=== PATIENT | male | born 1975 | race Caucasian/White ===

== ENCOUNTER 2018-02-20 20:09 | Outpatient (REF) | payer BC, SELFPAY ==
[2018-02-20 20:47] LABS: INR 3.3 (1.0-3.5); Prothrombin Time 30.6 sec (9.3-10.8)
== END 2018-02-20 20:10 ==
LOC: NCHCN 20:09
PROVIDERS: PCP Nurse Practitioner Family; Visit Provider Registered Nurse
DX: I82.509 Chronic embolism and thrombosis of unspecified deep veins of unspecified lower extremity (principal); I87.2 Venous insufficiency (chronic) (peripheral)
CPT/HCPCS: 85610

== ENCOUNTER 2018-04-10 10:24 | Outpatient (REF) | payer BC, SELFPAY ==
[2018-04-10 21:03] LABS: HCT 46.2 % (40.0-50.0); HGB 15.6 g/dL (13.5-17.5); Mean Corp. HGB Concentration 33.8 g/dL (32.0-36.0); Mean Corpuscular Hemoglobin 30.6 pg (27.0-33.0); Mean Corpuscular Volume 90.6 fL (80-95); Mean Platelet Volume 10.4 fL (8.0-11.0); Platelet Count 297 x1000/uL (130-400); RBC Distribution Width 13.5 % (11.8-14.1); White Blood Cell Count 7.33 k/cumm (4.4-10.8)
[2018-04-10 21:14] LABS: INR 2.3 (1.0-3.5); Prothrombin Time 21.5 sec (9.3-10.8)
[2018-04-10 21:26] LABS: Anion Gap 9.6 mmol/L (3-11); BUN 18 mg/dL (7-18); CO2 27.4 mmol/L (21.0-32.0); CREATININE 1.18 mg/dL (0.70-1.30); Chloride 105 mmol/L (98-107); Cholesterol 157 mg/dL (50-200); Glucose 93 mg/dL (70-100); HDL Cholesterol 45 mg/dL (40-60); LDL CHOLESTEROL 105 mg/dL (<100); Potassium 4.2 mmol/L (3.5-5.1); Sodium 142 mmol/L (136-145); Triglyceride 73 mg/dL (30-150)
[2018-04-10 22:20] LABS: Calcium 8.7 mg/dL (8.5-10.1)
== END 2018-04-10 10:44 ==
LOC: NCHCN 10:24
PROVIDERS: PCP Nurse Practitioner Family; Visit Provider Nurse Practitioner Family
DX: R03.0 Elevated blood-pressure reading, without diagnosis of hypertension (principal); I82.509 Chronic embolism and thrombosis of unspecified deep veins of unspecified lower extremity; Z79.01 Long term (current) use of anticoagulants; Z13.220 Encounter for screening for lipoid disorders
CPT/HCPCS: 80048; 80061; 83721; 85027; 85610

== ENCOUNTER 2019-05-11 17:30 | Outpatient (REF) | payer BC, SELFPAY ==
[2019-05-11 21:57] LABS: Hemoglobin A1C 5.6 % (4.5-6.2)
[2019-05-11 22:04] LABS: ALT 47 U/L (16-63); AST 29 U/L (15-37); Albumin 4.1 g/dL (3.4-5.0); Alkaline Phosphatase 81 U/L (46-116); Anion Gap 8.2 mmol/L (3-11); BUN 28 mg/dL (7-18); Bilirubin, Total 0.5 mg/dL (0.2-1.0); CO2 29.8 mmol/L (21.0-32.0); CREATININE 1.13 mg/dL (0.70-1.30); Calcium 9.3 mg/dL (8.5-10.1); Chloride 105 mmol/L (98-107); Glucose 87 mg/dL (70-100); Sodium 143 mmol/L (136-145)
== END 2019-05-11 17:50 ==
LOC: NCHCN 17:30
PROVIDERS: PCP Nurse Practitioner Family; Visit Provider Nurse Practitioner Family
DX: I87.003 Postthrombotic syndrome without complications of bilateral lower extremity (principal); Z79.01 Long term (current) use of anticoagulants; J30.9 Allergic rhinitis, unspecified; Z13.1 Encounter for screening for diabetes mellitus
CPT/HCPCS: 80053; 83036

== ENCOUNTER 2021-07-19 07:48 | Outpatient (REF) | payer OTHER, SELFPAY ==
[2021-07-19 15:02] LABS: HCT 45.7 % (40.0-50.0); HGB 15.3 g/dL (13.5-17.5); MCH 30.3 pg (27.0-33.0); MCHC 33.5 % (32.0-36.0); MCV 90.5 fL (80-95); Platelet Count 290 10^3/uL (130-400); RBC 5.05 10^6/uL (4.36-5.78); RDW 12.5 % (11.8-14.1); RDW-SD 41.2 fL; WBC 5.63 10^3/uL (4.4-10.8)
[2021-07-19 15:32] LABS: Anion Gap 9.1 mmol/L (3-11); BUN 23 mg/dL (7-18); CO2 25.9 mmol/L (21.0-32.0); Calcium 9.3 mg/dL (8.5-10.1); Calculated LDL 87 mg/dL (<100); Chloride 104 mmol/L (98-107); Cholesterol 153 mg/dL (<200); Glucose 108 mg/dL (74-106); HDL Cholesterol 61 mg/dL (40-60); Potassium 4.2 mmol/L (3.5-5.1); Sodium 139 mmol/L (136-145); Triglyceride 29 mg/dL (<150)
[2021-07-19 15:48] LABS: Hemoglobin A1C 5.7 % (<5.7)
== END 2021-07-19 07:49 | disposition home or self-care (01) ==
LOC: NCHCN 07:48
PROVIDERS: PCP Nurse Practitioner Family; Visit Provider Nurse Practitioner Family
DX: E66.9 Obesity, unspecified (principal); I87.003 Postthrombotic syndrome without complications of bilateral lower extremity; Z13.1 Encounter for screening for diabetes mellitus; Z13.220 Encounter for screening for lipoid disorders; Z79.01 Long term (current) use of anticoagulants
CPT/HCPCS: 80048; 80061; 85027; 83036

== ENCOUNTER 2023-08-04 14:31 | Outpatient (REF) | payer OTHER, SELFPAY ==
[2023-08-04 15:49] LABS: HCT 44.2 % (40.0-50.0); HGB 14.9 g/dL (13.5-17.5); MCH 30.1 pg (27.0-33.0); MCHC 33.7 % (32.0-36.0); MCV 89 fL (80-95); MPV 10.2 fL (8.0-11.0); Platelet Count 309 10^3/uL (130-400); RBC 4.95 10^6/uL (4.36-5.78); RDW 12.7 % (11.8-14.1); RDW-SD 41.5 fL
[2023-08-04 16:19] LABS: ALT 137 U/L (16-63); AST 57 U/L (15-37); Alkaline Phosphatase 63 U/L (46-116); Anion Gap 11.7 mmol/L (3-11); BUN 22 mg/dL (7-18); Bilirubin, Total 0.4 mg/dL (0.2-1.0); CO2 22.3 mmol/L (21.0-32.0); Calcium 9.2 mg/dL (8.5-10.1); Calculated LDL 116 mg/dL (<100); Chloride 107 mmol/L (98-107); Cholesterol 175 mg/dL (<200); Estimated GFR 92.84 (mL/min/1.73m2); Glucose 122 mg/dL (74-106); HDL Cholesterol 53 mg/dL (40-60); Sodium 141 mmol/L (136-145); Total Protein 7.2 g/dL (6.4-8.2); Triglyceride 32 mg/dL (<150)
[2023-08-04 16:43] LABS: Hemoglobin A1C 5.8 % (<5.7)
== END 2023-08-04 14:32 | disposition home or self-care (01) ==
LOC: NCHCN 14:31
PROVIDERS: PCP Nurse Practitioner Family; Visit Provider Nurse Practitioner Family
DX: R73.03 Prediabetes (principal); I87.003 Postthrombotic syndrome without complications of bilateral lower extremity; R79.89 Other specified abnormal findings of blood chemistry; Z79.01 Long term (current) use of anticoagulants
CPT/HCPCS: 80053; 80061; 85027; 83036

== ENCOUNTER 2024-02-10 14:36 | Outpatient (REF) | payer OTHER, SELFPAY ==
[2024-02-10 15:39] LABS: ALT 54 U/L (16-63); AST 29 U/L (15-37); Alkaline Phosphatase 74 U/L (46-116); Anion Gap 9.2 mmol/L (3-11); BUN 16 mg/dL (7-18); CO2 24.8 mmol/L (21.0-32.0); Calcium 9.4 mg/dL (8.5-10.1); Calculated LDL 127 mg/dL (<100); Chloride 106 mmol/L (98-107); Cholesterol 182 mg/dL (<200); Estimated GFR 92.84 (mL/min/1.73m2); Glucose 117 mg/dL (74-106); HDL Cholesterol 47 mg/dL (40-60); Potassium 4.2 mmol/L (3.5-5.1); Sodium 140 mmol/L (136-145); Total Protein 7.2 g/dL (6.4-8.2); Triglyceride 40 mg/dL (<150)
== END 2024-02-10 14:37 | disposition home or self-care (01) ==
LOC: NCHCN 14:36
PROVIDERS: PCP Nurse Practitioner Family; Visit Provider Nurse Practitioner Family
DX: R73.03 Prediabetes (principal); R74.01 Elevation of levels of liver transaminase levels; Z13.220 Encounter for screening for lipoid disorders
CPT/HCPCS: 80053; 80061; 83036

== ENCOUNTER 2025-02-10 13:58 | Outpatient (REF) | payer OTHER, SELFPAY ==
[2025-02-10 14:34] LABS: HCT 48.0 % (40.0-50.0); HGB 16.2 g/dL (13.5-17.5); MCH 30.3 pg (27.0-33.0); MCHC 33.8 % (32.0-36.0); MCV 90 fL (80-95); MPV 9.9 fL (8.0-11.0); Platelet Count 307 10^3/uL (130-400); RBC 5.35 10^6/uL (4.36-5.78); RDW 12.7 % (11.8-14.1); RDW-SD 41.7 fL; WBC 6.64 10^3/uL (4.4-10.8)
[2025-02-10 14:51] LABS: Hemoglobin A1C 5.8 % (<5.7)
[2025-02-10 14:55] LABS: ALT 66 U/L (16-63); AST 38 U/L (15-37); Albumin 4.3 g/dL (3.4-5.0); Alkaline Phosphatase 80 U/L (46-116); Anion Gap 8.9 mmol/L (3-11); BUN 20 mg/dL (7-18); Bilirubin, Total 0.7 mg/dL (0.2-1.0); CO2 25.1 mmol/L (21.0-32.0); Calcium 9.3 mg/dL (8.5-10.1); Calculated LDL 141 mg/dL (<100); Chloride 105 mmol/L (98-107); Cholesterol 209 mg/dL (<200); Estimated GFR 82.29 (mL/min/1.73m2); Glucose 125 mg/dL (74-106); HDL Cholesterol 55 mg/dL (>or=40); Potassium 4.1 mmol/L (3.5-5.1); Sodium 139 mmol/L (136-145); TSH 1.59 uIU/mL (0.36-3.74); Total Protein 7.7 g/dL (6.4-8.2); Triglyceride 69 mg/dL (<150)
== END 2025-02-10 13:59 | disposition home or self-care (01) ==
LOC: NCHCN 13:58
PROVIDERS: PCP Nurse Practitioner Family; Visit Provider Nurse Practitioner Family
DX: Z00.00 Encounter for general adult medical examination without abnormal findings (principal); Z13.220 Encounter for screening for lipoid disorders; Z13.29 Encounter for screening for other suspected endocrine disorder
CPT/HCPCS: 80053; 80061; 85027; 83036; 84443